=== PATIENT | male | born 1975 | race Caucasian/White ===

== ENCOUNTER 2017-12-24 08:42 | Inpatient (IN) | payer OTHER ==
[~2017-12-24] VITALS: Ht 188 cm; Wt 95.3 kg
[2017-12-25 16:30] VITALS: BP 118/76
[2017-12-25] MEDS ORDERED: LORAZEPAM 1 MG TABLET PO PRN ×2 (16:45)
[2017-12-25] MEDS ORDERED: ONDANSETRON 4 MG/2 ML VIAL IM PRN (16:45)
[2017-12-25] MEDS ORDERED: MAG HYDROX/AL HYDROX/SIMETH 30 ML LIQUID UDC PO PRN (16:45)
[2017-12-25] MEDS ORDERED: LOPERAMIDE HCL 2 MG CAPSULE PO PRN ×2 (16:45)
[2017-12-25] MEDS ORDERED: ONDANSETRON ODT 4 MG TAB.RAPDIS SL PRN (16:45)
[2017-12-25] MEDS ORDERED: MAGNESIUM HYDROXIDE 30 ML LIQUID UDC PO PRN (16:45)
[2017-12-25] MEDS ORDERED: CLONIDINE HCL 0.1 MG TABLET PO PRN (16:45)
[2017-12-25] MEDS ORDERED: diphenhydrAMINE 50 MG CAPSULE PO PRN (16:45)
[2017-12-25] MEDS ORDERED: IBUPROFEN 400 MG TABLET PO PRN (16:45)
[2017-12-25] MEDS ORDERED: ACETAMINOPHEN 325 MG TABLET PO PRN (16:45)
[2017-12-25] MEDS ORDERED: THIAMINE HCL 200 MG/2 ML VIAL IM ONE (16:45)
[2017-12-25] MEDS ORDERED: LORAZEPAM 2 MG/1 ML VIAL IM PRN (16:45)
[2017-12-25 17:31] LABS: BASOPHILS # (AUTO) 0.1 K/uL (0.0-8.0); EOSINOPHILS # (AUTO) 0.4 K/uL (0.0-0.7); EOSINOPHILS % (AUTO) 8.2 % (0.0-7.0); HEMOGLOBIN 13.5 g/dL (12.5-16.3); LYMPHOCYTES # (AUTO) 1.5 K/uL (20.0-40.0); LYMPHOCYTES % (AUTO) 28.9 % (20.5-51.5); MEAN CORPUSCULAR HEMOGLOBIN 30.2 uug (23.8-33.4); MEAN CORPUSCULAR HGB CONC 35 g/dL (32.5-36.3); MEAN CORPUSCULAR VOLUME 87.3 fL (73.0-96.2); MONOCYTES # (AUTO) 0.5 K/uL (2.0-10.0); MONOCYTES % (AUTO) 10.6 % (0.0-11.0); NEUTROPHILS # (AUTO) 2.7 K/uL (1.8-8.9); NEUTROPHILS % (AUTO) 51.3 % (38.5-71.5); PLATELET COUNT (AUTO) 233 K/uL (152-348); RED BLOOD CELL COUNT(AUTO) 4.47 MIL/uL (4.06-5.63); WHITE BLOOD COUNT (AUTO) 5.2 K/uL (3.6-10.2)
[2017-12-25 17:45] LABS: ALANINE AMINOTRANSFERASE 32 U/L (16-63); ALKALINE PHOSPHATASE 70 U/L (50-136); AMYLASE 56 U/L (25-115); ASPARTATE AMINOTRANSFERASE 31 U/L (15-37); BILIRUBIN,TOTAL 0.6 mg/dL (0.2-1.0); CARBON DIOXIDE 33 mmol/L (21-32); CHLORIDE 94 mmol/L (98-107); CREATININE 1.5 mg/dL (0.6-1.3); GLUCOSE 96 mg/dL (74-106); MAGNESIUM 1.9 mg/dL (1.8-2.4); POTASSIUM 3.6 mmol/L (3.5-5.1); TOTAL PROTEIN, SERUM 7.8 g/dL (6.4-8.2); UREA NITROGEN, BLOOD 17 mg/dL (7-18)
[2017-12-25 17:49] LABS: ETHANOL < 3 MG/DL (0-0)
[2017-12-25 17:50] LABS: *AMPHETAMINE, URINE NEGATIVE (NEGATIVE); *BARBITURATE, URINE NEGATIVE (NEGATIVE); *CANNABINOID, URINE NEGATIVE (NEGATIVE); *COCCAINE, URINE POSITIVE (NEGATIVE); *OPIATE, URINE POSITIVE (NEGATIVE); *PHENCYCLIDINE SCREEN,URINE NEGATIVE (NEGATIVE)
[2017-12-25 20:00] VITALS: BP 123/83
[2017-12-25] MEDS: PANTOPRAZOLE SODIUM 40 MG TABLET.DR PO PRN (20:46)
[2017-12-26] VITALS: BP 108/70
[2017-12-26] MEDS: MIRALAX 17 GM POWD.PACK PO PRN (06:33)
[2017-12-26 08:00] VITALS: BP 125/87
[2017-12-26] MEDS: FOLIC ACID 1 MG TABLET PO SCH (08:45)
[2017-12-26] MEDS: THIAMINE HCL 100 MG TABLET PO SCH (08:45)
[2017-12-26] MEDS: MULTIVITAMINS,THERAPEUTIC TABLET PO SCH (08:45)
[2017-12-26] MEDS ORDERED: TUBERCULIN,PURIF.PROT.DERIV. 5 TU/0.1 ML TEST ID ONE (09:00)
[2017-12-26] MEDS ORDERED: MAGNESIUM CITRATE 296 ML BOTTLE PO PRN (10:45)
[2017-12-26] MEDS: DOCUSATE SODIUM 250 MG CAPSULE PO SCH (12:09)
[2017-12-26 12:14] VITALS: BP 132/84
[2017-12-26] MEDS ORDERED: CLON0.1T14 PO (12:38)
[2017-12-26] MEDS ORDERED: PANT40TA2 PO (12:38)
[2017-12-26] MEDS ORDERED: DOCU250C14 PO (12:38)
[2017-12-26] MEDS ORDERED: IBUP-1953 PO (12:38)
[2017-12-26] MEDS ORDERED: DIPH50CA37 PO (12:38)
[2017-12-26 16:00] VITALS: BP 128/73
[2017-12-26 20:00] VITALS: BP 122/75
[2017-12-27] MEDS: PANTOPRAZOLE SODIUM 40 MG TABLET.DR PO PRN (06:35)
[2017-12-27] MEDS: MIRALAX 17 GM POWD.PACK PO PRN (06:35)
[2017-12-27 08:07] LABS: HEPATITIS B SURFACE AG Negative (Negative)
[2017-12-27] MEDS: FOLIC ACID 1 MG TABLET PO SCH (08:27)
[2017-12-27] MEDS: DOCUSATE SODIUM 250 MG CAPSULE PO SCH (08:27)
[2017-12-27] MEDS: MULTIVITAMINS,THERAPEUTIC TABLET PO SCH (08:27)
[2017-12-27] MEDS: THIAMINE HCL 100 MG TABLET PO SCH (08:28)
[2017-12-27 08:30] VITALS: BP 121/86
== END 2017-12-27 09:40 | DRG 895 ==
LOC: SRC 12-25 15:38
PROVIDERS: ADMIT Internal Medicine; ATTEND Internal Medicine
PROC: HZ2ZZZZ Detoxification Services for Substance Abuse Treatment (ICD-10-PCS; principal; 2017-12-25)
PROC: HZ41ZZZ Group Counseling for Substance Abuse Treatment, Behavioral (ICD-10-PCS; 2017-12-26)
DX: F10.20 Alcohol dependence, uncomplicated (principal); E87.3 Alkalosis; N17.9 Acute kidney failure, unspecified; E87.1 Hypo-osmolality and hyponatremia; E86.0 Dehydration; F13.10 Sedative, hypnotic or anxiolytic abuse, uncomplicated; Y90.0 Blood alcohol level of less than 20 mg/100 ml; F11.10 Opioid abuse, uncomplicated; F17.211 Nicotine dependence, cigarettes, in remission; F41.9 Anxiety disorder, unspecified; G89.29 Other chronic pain; M54.5 Low back pain; K21.9 Gastro-esophageal reflux disease without esophagitis; Z81.8 Family history of other mental and behavioral disorders; F10.21 Alcohol dependence, in remission; M54.10 Radiculopathy, site unspecified; E87.8 Other disorders of electrolyte and fluid balance, not elsewhere classified
CPT/HCPCS: 36415; 70030-TC; 80307; 80346; 80353; 80361; 83735; 85025; 86580; 86592; 86705; 86803; 87340; 87806; G0480; J3411